=== PATIENT | female | born 1955 | race Native Hawaiian/Other Pacific Islander ===

== ENCOUNTER 2018-05-22 03:42 | Emergency (ER) | payer OTHER ==
[~2018-05-22] VITALS: Ht 160 cm; Wt 59.0 kg
[2018-05-22] MEDS ORDERED: Simvastatin20 MG PO (05:43)
[2018-05-22] MEDS ORDERED: CARV6.25 PO (05:43)
== END 2018-05-22 05:45 | disposition home or self-care (01) ==
LOC: ER 03:42
DX: K06.8 Other specified disorders of gingiva and edentulous alveolar ridge (principal)
CPT/HCPCS: 99282

== ENCOUNTER → 2021-05-07 | Outpatient (CLI) | payer OTHER ==
[~2021-05-07] MED LIST: CARV6.25 PO; Simvastatin20 MG PO
[2021-05-07 13:38] LABS: Stool Occult Bld Immuno 1 Negative (NEGATIVE)
== END | disposition home or self-care (01) ==
LOC: LAB SHORT 09:45
PROVIDERS: Nurse Practitioner Family
DX: Z12.11 Encounter for screening for malignant neoplasm of colon (principal)
CPT/HCPCS: G0328

== ENCOUNTER → 2021-06-11 | Outpatient (CLI) | payer OTHER ==
[2021-06-15 13:09] LABS: HPV 16 Negative (Negative); HPV 18 Negative (Negative); HPV OTHER HR TYPES Negative (Negative)
== END | disposition home or self-care (01) ==
LOC: LAB 14:29 → LAB SHORT 14:29
PROVIDERS: Advanced Practice Midwife
DX: Z01.419 Encounter for gynecological examination (general) (routine) without abnormal findings (principal)
CPT/HCPCS: 87624; G0123

== ENCOUNTER → 2024-07-03 | Outpatient (CLI) | payer OTHER | END | disposition home or self-care (01) | LOC: LAB SHORT 11:35 → LAB 11:35 | DX: Z12.11 Encounter for screening for malignant neoplasm of colon (principal) ==